=== PATIENT | female | born 1955 | race Caucasian/White ===

== ENCOUNTER 2024-11-23 18:32 | Emergency (ER) | payer MEDICARE ==
[2024-11-23 18:51] LABS: #Basophils 0.1 thou/uL (0.0-0.2); #Eosinophils 0.1 thou/uL (0.0-0.7); #Lymphocytes 2.6 thou/uL (1.20-3.40); #Monocytes 0.5 thou/uL (0.11-0.59); #Neutrophils 3.8 thou/uL (1.40-6.50); %Basophils 1.5 % (0.0-1.0); %Eosinophils 1.9 % (0.0-10.0); %Lymphocytes 36.5 % (21.0-51.0); %Monocytes 6.7 % (0.0-10.0); %Neutrophils 53.4 % (42.0-75.0); Hematocrit 45.8 % (36.0-47.0); Hemoglobin 14.3 g/dL (12.0-16.0); Mean Corpuscular HGB CONC 31.3 g/dL (32.0-36.0); Mean Corpuscular Hemoglobin 29.1 pg (27.0-31.0); Mean Platelet Volume 9.1 fL (7.4-10.4); Platelet Count 246 10x3/uL (130-400); RBC Distribution Width 12.5 % (11.5-14.5); Red Blood Cell (RBC) Count 4.92 mill/uL (4.20-5.40); White Blood Cell (WBC) Count 7.2 10x3/uL (4.8-10.8)
[2024-11-23 19:06] LABS: ALT (SGPT) 8 U/L (Less than 34); AST (SGOT) 17 U/L (11-34); Alkaline Phosphatase 92 U/L (40-110); Anion Gap 11 mmol/L (10-20); BUN (Urea Nitrogen) 18 mg/dL (9.8-20.1); Bilirubin, Total 0.3 mg/dL (0.3-1.2); Calc. Creatinine Clearance 0 mL/min (70-130); Calcium 9.5 mg/dL (7.8-10.44); Carbon Dioxide 27 mmol/L (23-31); Chloride 106 mmol/L (98-107); Estimated GFR 63; Globulin 3.2 g/dL (2.4-3.5); Glucose 90 mg/dL (80-115); Potassium 4.5 mmol/L (3.5-5.1); Protein, Total 7.2 g/dL (5.8-8.1); Sodium 139 mmol/L (136-145)
[2024-11-23 19:09] LABS: Troponin I Less than 0.010 ng/mL (< 0.028)
== END 2024-11-23 20:42 | disposition home or self-care (01) ==
LOC: MADERS 18:32
DX: R10.13 Epigastric pain (principal); R29.700 NIHSS score 0; I10 Essential (primary) hypertension; F17.210 Nicotine dependence, cigarettes, uncomplicated
CPT/HCPCS: 71046; 80053; 83690; 84484; 85025; 87428; 93005; 94760

== ENCOUNTER 2025-01-13 14:54 | Emergency (ER) | payer MEDICARE ==
[2025-01-13] MEDS ORDERED: Acetaminophen 325 MG TAB ONE (16:47)
== END 2025-01-13 16:55 | disposition home or self-care (01) ==
LOC: MADERS 14:54
DX: G56.01 Carpal tunnel syndrome, right upper limb (principal); M19.09 Primary osteoarthritis, other specified site; I10 Essential (primary) hypertension; K21.9 Gastro-esophageal reflux disease without esophagitis; F17.210 Nicotine dependence, cigarettes, uncomplicated; Z79.899 Other long term (current) drug therapy
CPT/HCPCS: 29125; 99283